=== PATIENT | male | born 1995 | race Hispanic/Latino ===

== ENCOUNTER 2018-03-16 12:14 | Emergency (ER) | payer OTHER, SELFPAY ==
--- NOTE | 2018-03-16 12:36 | EDPHYS ---
Physician Documentation [facility] Name: Quinn Garcia Age: 22 yrs Sex: Male : 1995 Arrival Date: 03/16/2018 Time: 12:15 Bed 12 Private MD: None, None ED Physician Sherwin Ness HPI: 03/16 12:45 This 22 yrs old Male presents to ER via Ambulatory with complaints of Rash. snw 12:45 The patient's rash thought to be caused by Dermatitis. The rash is located on the body snw diffusely. The rash can be described as erythematous, flat, patchy, + central clearing. Onset: The symptoms/episode began/occurred gradually. Severity of symptoms: At their worst the symptoms were moderate severe. It is unknown whether or not the patient has had similar symptoms in the past. The patient has not recently seen a physician. Historical: - Allergies: 12:25 No Known Allergies; ch - Home Meds: 12:25 None [Active]; ch - PMHx: 12:25 None; ch - PSHx: 12:25 None; ch - Immunization history:: Adult Immunizations up to date. - Social history:: Smoking status: Patient/guardian denies using tobacco. - Ebola Screening: : Patient negative for fever greater than or equal to 101.5 degrees Fahrenheit, and additional compatible Ebola Virus Disease symptoms Patient denies exposure to infectious person Patient denies travel to an Ebola-affected area in the 21 days before illness onset No symptoms or risks identified at this time. ROS: 12:44 Constitutional: Negative for fever, chills, and weight loss, Eyes: Negative for injury, snw pain, redness, and discharge, ENT: Negative for injury, pain, and discharge, Neck: Negative for injury, pain, and swelling, Cardiovascular: Negative for chest pain, palpitations, and edema, Respiratory: Negative for shortness of breath, cough, wheezing, and pleuritic chest pain, Abdomen/GI: Negative for abdominal pain, nausea, vomiting, diarrhea, and constipation, Back: Negative for injury and pain, : Negative for injury, bleeding, discharge, and swelling, MS/Extremity: Negative for injury and deformity, Neuro: Negative for headache, weakness, numbness, tingling, and seizure, Psych: Negative for depression, anxiety, suicide ideation, homicidal ideation, and hallucinations. 12:44 Skin: Positive for rash. Exam: 12:43 Constitutional: This is a well developed, well nourished patient who is awake, alert, snw and in no acute distress. Head/Face: Normocephalic, atraumatic. Eyes: Pupils equal round and reactive to light, extra-ocular motions intact. Lids and lashes normal. Conjunctiva and sclera are non-icteric and not injected. Cornea within normal limits. Periorbital areas with no swelling, redness, or edema. ENT: Nares patent. No nasal discharge, no septal abnormalities noted. Tympanic membranes are normal and external auditory canals are clear. Oropharynx with no redness, swelling, or masses, exudates, or evidence of obstruction, uvula midline. Mucous membranes moist. Neck: Trachea midline, no thyromegaly or masses palpated, and no cervical lymphadenopathy. Supple, full range of motion without nuchal rigidity, or vertebral point tenderness. No Meningismus. Chest/axilla: Normal chest wall appearance and motion. Nontender with no deformity. No lesions are appreciated. Cardiovascular: Regular rate and rhythm with a normal S1 and S2. No gallops, murmurs, or rubs. Normal PMI, no JVD. No pulse deficits. Respiratory: Lungs have equal breath sounds bilaterally, clear to auscultation and percussion. No rales, rhonchi or wheezes noted. No increased work of breathing, no retractions or nasal flaring. Abdomen/GI: Soft, non-tender, with normal bowel sounds. No distension or tympany. No guarding or rebound. No evidence of tenderness throughout. Back: No spinal tenderness. No costovertebral tenderness. Full range of motion. MS/ Extremity: Pulses equal, no cyanosis. Neurovascular intact. Full, normal range of motion. Neuro: Awake and alert, GCS 15, oriented to person, place, time, and situation. Cranial nerves II-XII grossly intact. Motor strength 5/5 in all extremities. Sensory grossly intact. Cerebellar exam normal. Normal gait. Psych: Awake, alert, with orientation to person, place and time. Behavior, mood, and affect are within normal limits. 12:43 Skin: Appearance: normal except for affected area, ringworm. Vital Signs: 12:21 BP 127 / 85; Pulse 55; Resp 14; Temp 97.8; Pulse Ox 99% on R/A; Weight 70.76 kg; Height ch 5 ft. 5 in. (165.10 cm); Pain 2/10; 12:21 Body Mass Index 25.96 (70.76 kg, 165.10 cm) MDM: 12:27 Patient medically screened. snw 12:44 Data reviewed: vital signs, nurses notes. Data interpreted: Pulse oximetry: on room air snw is 99 %. Interpretation: normal. Counseling: I had a detailed discussion with the patient and/or guardian regarding: the historical points, exam findings, and any diagnostic results supporting the discharge/admit diagnosis, the presence of at least one elevated blood pressure reading (>120/80) during this emergency department visit, the need for outpatient follow up, to return to the emergency department if symptoms worsen or persist or if there are any questions or concerns that arise at home. Special discussion: Based on the history and exam findings, there is no indication for further emergent testing or inpatient evaluation. I discussed with the patient/guardian the need to see the business support professional for further evaluation of the symptoms. I discussed with the patient/guardian the need to see the primary care provider for further evaluation of the symptoms. Administered Medications: 13:02 Drug: DiFLUcan 150 mg Route: PO; 13:08 Follow up: Response: Medication administered at discharge. Disposition: 03/16/18 12:35 Discharged to Home. Impression: Tinea corporis. - Condition is Stable. - Discharge Instructions: Body Ringworm. - Prescriptions for Tinactin - apply 1 application by TOPICAL route 4 times per day; 1 Cartridge. Fluconazole 150 mg Oral Tablet - take 1 tablet by ORAL route once daily Take orally in one week; 30 tablet. - Medication Reconciliation Form, Thank You Letter, Antibiotic Education, Prescription Opioid Use form. - Follow up: Private Physician; When: 2 - 3 days; Reason: Recheck today's complaints, Continuance of care, Re-evaluation by your physician. Follow up: Emergency Department; When: As needed; Reason: Worsening of condition. - Notes: Please bathe with Selsun Blue shampoo until rash clears Addendum: 03/24/2018 10:58 Co-signature as Attending Physician, Sherwin Ness MD. g s Signatures: Maine Perry RN RN Virginie Arreaga, DEMONSTRATOR SALES-C DEMONSTRATOR SALES-Csnw Norah Jacobs RN RN ss Sherwin Ness MD MD gs Corrections: (The following items were deleted from the chart) 03/16 13:07 12:35 03/16/2018 12:35 Discharged to Home. Impression: Tinea corporis. Condition is ch Stable. Forms are Medication Reconciliation Form, Thank You Letter, Antibiotic Education, Prescription Opioid Use. Follow up: Private Physician; When: 2 - 3 days; Reason: Recheck today's complaints, Continuance of care, Re-evaluation by your physician. Follow up: Emergency Department; When: As needed; Reason: Worsening of condition. snw
--- NOTE | 2018-03-16 12:36 | ER ---
Nurse's Notes [facility] Name: Quinn Garcia Age: 22 yrs Sex: Male : 1995 Arrival Date: 03/16/2018 Time: 12:15 Bed 12 Private MD: None, None Diagnosis: Tinea corporis Presentation: 03/16 12:21 Presenting complaint: Patient states: rash to body for the past two weeks. I have had ch this rash before 2 years ago and they gave me some creme in assisted that got rid of it. Transition of care: patient was not received from another setting of care. Onset of symptoms was March 03, 2018. Risk Assessment: Do you want to hurt yourself or someone else? Patient reports no desire to harm self or others. Initial Sepsis Screen: Does the patient meet any 2 criteria? No. Patient's initial sepsis screen is negative. Does the patient have a suspected source of infection? No. Patient's initial sepsis screen is negative. Care prior to arrival: None. 12:21 Method Of Arrival: Ambulatory 12:21 Acuity: EDEN 5 Triage Assessment: 12:21 General: Appears in no apparent distress. comfortable. ch Historical: - Allergies: 12:25 No Known Allergies; ch - Home Meds: 12:25 None [Active]; ch - PMHx: 12:25 None; ch - PSHx: 12:25 None; ch - Immunization history:: Adult Immunizations up to date. - Social history:: Smoking status: Patient/guardian denies using tobacco. - Ebola Screening: : Patient negative for fever greater than or equal to 101.5 degrees Fahrenheit, and additional compatible Ebola Virus Disease symptoms Patient denies exposure to infectious person Patient denies travel to an Ebola-affected area in the 21 days before illness onset No symptoms or risks identified at this time. Screenin:26 Abuse screen: Denies threats or abuse. Denies injuries from another. Nutritional ch screening: No deficits noted. Tuberculosis screening: No symptoms or risk factors identified. Fall Risk None identified. Assessment: 12:26 General: Appears in no apparent distress. comfortable, Behavior is cooperative, ch appropriate for age, restless. Pain: Denies pain. Neuro: No deficits noted. Respiratory: Airway is patent Respiratory effort is even, unlabored, Breath sounds are clear bilaterally. GI: No signs and/or symptoms were reported involving the gastrointestinal system. Derm: Skin is pink, warm \T\ dry. Rash noted that is itchy, red, on head, chest, abdomen, pelvis, right arm, left arm, right leg, left leg, back of head, back of neck, posterior chest, buttocks, back of left leg, back of right leg, back and scalp pt has scabs over a rash, skin is slightly darker where the rash is, in some areas red. rash is largest on back, slightly raised. no warmth. 13:07 Reassessment: Patient appears in no apparent distress at this time. No changes from previously documented assessment. Patient and/or family updated on plan of care and expected duration. Pain level reassessed. Patient is alert, oriented x 3, equal unlabored respirations, skin warm/dry/pink. Vital Signs: 12:21 BP 127 / 85; Pulse 55; Resp 14; Temp 97.8; Pulse Ox 99% on R/A; Weight 70.76 kg; Height 5 ft. 5 in. (165.10 cm); Pain 2/10; 12:21 Body Mass Index 25.96 (70.76 kg, 165.10 cm) ED Course: 12:15 Patient arrived in ED. sb2 12:15 None, None is Private Physician. sb2 12:21 Maine Perry, RN is Primary Nurse. ch 12:21 Arm band placed on left wrist. Patient placed in an exam room, on a stretcher. 12:22 Triage completed. 12:26 Virginie Mirza FNP-C is [facility]. snw 12:26 No apparent distress. Resting quietly. ch 12:26 Patient has correct armband on for positive identification. Bed in low position. Call light in reach. Side rails up X 1. Adult w/ patient. 12:26 No provider procedures requiring assistance completed. Patient did not have IV access during this emergency room visit. 12:27 Sherwin Ness MD is Attending Physician. snw Administered Medications: 13:02 Drug: DiFLUcan 150 mg Route: PO; ss 13:08 Follow up: Response: Medication administered at discharge. Outcome: 12:35 Discharge ordered by . snw 13:07 Discharged to home ambulatory, with family. 13:07 Condition: good 13:07 Discharge instructions given to patient, family, Instructed on discharge instructions, follow up and referral plans. medication usage, Demonstrated understanding of instructions, follow-up care, medications, Prescriptions given X 1. 13:07 Patient left the ED. Signatures: Maine Perry, RN RN Virginie Mirza, ENGINEERING DESIGN SUPERVISOR-C ENGINEERING DESIGN SUPERVISOR-Csnw Norah Jacobs RN RN Lali Rowan sb2
[2018-03-16] MEDS ORDERED: FLUCONAZOLE 100 MG TAB ONE (12:55)
== END 2018-03-16 13:07 | disposition home or self-care (01) ==
LOC: ER 12:14
DX: B35.4 Tinea corporis (principal)
CPT/HCPCS: 99283

== ENCOUNTER 2019-02-13 11:50 | Emergency (ER) | payer SELFPAY ==
--- NOTE | 2019-02-13 12:07 | EDPHYS ---
Physician Documentation [facility] Name: Quinn Garcia Age: 23 yrs Sex: Male : 1995 Arrival Date: 02/13/2019 Time: 11:52 Bed 19 Private MD: TALHA Physician Jonny Vicente HPI: 02/13 12:00 This 23 yrs old Male presents to ER via Unassigned with complaints of Penile kb Discharge. 12:00 The patient presents with a possible STD exposure, symptoms include green penile kb discharge, yellow penile discharge. Onset: The symptoms/episode began/occurred 2 day(s) ago. Modifying factors: The symptoms are alleviated by nothing, the symptoms are aggravated by nothing. Associated signs and symptoms: Pertinent positives: penile discharge. Severity of symptoms: At their worst the symptoms were moderate, in the emergency department the symptoms are unchanged. The patient has not experienced similar symptoms in the past. The patient has not recently seen a physician. Pt reports he recently had unprotected sex with three different people. Started having green penile discharge 2 days ago, now yellow. Historical: - Allergies: 12:02 No Known Allergies; aj - Home Meds: 12:02 None [Active]; aj - PMHx: 12:02 None; aj - PSHx: 12:02 None; aj - Immunization history:: Adult Immunizations up to date. - Social history:: Smoking status: Patient/guardian denies using tobacco. - Ebola Screening: : Patient negative for fever greater than or equal to 101.5 degrees Fahrenheit, and additional compatible Ebola Virus Disease symptoms Patient denies exposure to infectious person Patient denies travel to an Ebola-affected area in the 21 days before illness onset No symptoms or risks identified at this time. ROS: 12:04 Constitutional: Negative for fever, chills, and weight loss, Neck: Negative for injury, kb pain, and swelling, Cardiovascular: Negative for chest pain, palpitations, and edema, Respiratory: Negative for shortness of breath, cough, wheezing, and pleuritic chest pain, Abdomen/GI: Negative for abdominal pain, nausea, vomiting, diarrhea, and constipation, MS/Extremity: Negative for injury and deformity, Skin: Negative for injury, rash, and discoloration, Neuro: Negative for headache, weakness, numbness, tingling, and seizure. 12:04 : Positive for penile discharge. Exam: 12:05 Constitutional: This is a well developed, well nourished patient who is awake, alert, kb and in no acute distress. Head/Face: Normocephalic, atraumatic. Chest/axilla: Normal chest wall appearance and motion. Nontender with no deformity. No lesions are appreciated. Cardiovascular: Regular rate and rhythm with a normal S1 and S2. No gallops, murmurs, or rubs. Normal PMI, no JVD. No pulse deficits. Respiratory: Lungs have equal breath sounds bilaterally, clear to auscultation and percussion. No rales, rhonchi or wheezes noted. No increased work of breathing, no retractions or nasal flaring. Abdomen/GI: Soft, non-tender, with normal bowel sounds. No distension or tympany. No guarding or rebound. No evidence of tenderness throughout. Skin: Warm, dry with normal turgor. Normal color with no rashes, no lesions, and no evidence of cellulitis. MS/ Extremity: Pulses equal, no cyanosis. Neurovascular intact. Full, normal range of motion. Neuro: Awake and alert, GCS 15, oriented to person, place, time, and situation. Cranial nerves II-XII grossly intact. Motor strength 5/5 in all extremities. Sensory grossly intact. Cerebellar exam normal. Normal gait. Vital Signs: 12:02 BP 141 / 91; Pulse 88; Resp 19; Temp 98.2; Pulse Ox 100% on R/A; Weight 63.5 kg; Height aj 5 ft. 5 in. (165.10 cm); 12:02 Body Mass Index 23.30 (63.50 kg, 165.10 cm) MDM: 11:59 Patient medically screened. kb 12:05 Data reviewed: vital signs, nurses notes. Data interpreted: Pulse oximetry: on room air kb is 100 %. Interpretation: normal. Counseling: I had a detailed discussion with the patient and/or guardian regarding: the historical points, exam findings, and any diagnostic results supporting the discharge/admit diagnosis, the need for outpatient follow up, a family practitioner, to return to the emergency department if symptoms worsen or persist or if there are any questions or concerns that arise at home. 02/13 11:59 Order name: GC (GONORR/CHLAMYDIA) Probe mary Administered Medications: 12:19 Drug: Zithromax 500 mg Route: PO; bp 12:22 Follow up: Response: No adverse reaction bp 12:19 Drug: Rocephin (cefTRIAXone) 250 mg Route: IM; Site: right gluteus; bp 12:22 Follow up: Response: No adverse reaction bp Disposition: 02/14 08:13 Co-signature as Attending Physician, Jonny Vicente MD I agree with the assessment and corinne plan of care. Disposition: 02/13/19 12:06 Discharged to Home. Impression: Unspecified sexually transmitted disease. - Condition is Stable. - Discharge Instructions: Sexually Transmitted Disease, [id number]. - Prescriptions for Doxycycline Hyclate 100 mg Oral Tablet - take 1 tablet by ORAL route every 12 hours; 20 tablet. - Medication Reconciliation Form, Thank You Letter, Antibiotic Education, Prescription Opioid Use form. - Follow up: Emergency Department; When: As needed; Reason: Worsening of condition. Follow up: Private Physician; When: 2 - 3 days; Reason: Recheck today's complaints, Continuance of care, Re-evaluation by your physician. Signatures: Dispatcher [employer] Katharine Barnard, PUFF IRON OPERATOR-C PUFF IRON OPERATOR-CkNancy Mauro, RN RN Jonny Ash MD MD cha Peltier, Brian, RN RN bp Corrections: (The following items were deleted from the chart) 02/13 12:34 12:06 02/13/2019 12:06 Discharged to Home. Impression: Unspecified sexually transmitted bp disease. Condition is Stable. Forms are Medication Reconciliation Form, Thank You Letter, Antibiotic Education, Prescription Opioid Use. Follow up: Emergency Department; When: As needed; Reason: Worsening of condition. Follow up: Private Physician; When: 2 - 3 days; Reason: Recheck today's complaints, Continuance of care, Re-evaluation by your physician. kb
--- NOTE | 2019-02-13 12:07 | ER ---
Nurse's Notes [facility] Name: Quinn Garcia Age: 23 yrs Sex: Male : 1995 Arrival Date: 02/13/2019 Time: 11:52 Bed 19 Private MD: Diagnosis: Unspecified sexually transmitted disease Presentation: 02/13 12:00 Presenting complaint: Patient states: Green and yellow discharge for 3 days after aj unprotected sex. Transition of care: patient was not received from another setting of care. Onset of symptoms was January 11, 2019. Risk Assessment: Do you want to hurt yourself or someone else? Patient reports no desire to harm self or others. Initial Sepsis Screen: Does the patient meet any 2 criteria? No. Patient's initial sepsis screen is negative. Does the patient have a suspected source of infection? No. Patient's initial sepsis screen is negative. Care prior to arrival: None. 12:00 Method Of Arrival: Ambulatory aj 12:00 Acuity: EDEN 4 aj Triage Assessment: 12:02 General: Appears in no apparent distress. comfortable, Behavior is calm, cooperative, aj appropriate for age. Pain: Denies pain. Neuro: Level of Consciousness is awake, alert, obeys commands, Oriented to person, place, time, situation, Appropriate for age. Respiratory: Airway is patent Respiratory effort is even, unlabored, Respiratory pattern is regular, symmetrical. : Reports discharge. Derm: Skin is intact, is healthy with good turgor, Skin is pink, warm \T\ dry. normal. Historical: - Allergies: 12:02 No Known Allergies; aj - Home Meds: 12:02 None [Active]; aj - PMHx: 12:02 None; aj - PSHx: 12:02 None; aj - Immunization history:: Adult Immunizations up to date. - Social history:: Smoking status: Patient/guardian denies using tobacco. - Ebola Screening: : Patient negative for fever greater than or equal to 101.5 degrees Fahrenheit, and additional compatible Ebola Virus Disease symptoms Patient denies exposure to infectious person Patient denies travel to an Ebola-affected area in the 21 days before illness onset No symptoms or risks identified at this time. Screenin:24 Abuse screen: Denies threats or abuse. Denies injuries from another. Nutritional bp screening: No deficits noted. Tuberculosis screening: No symptoms or risk factors identified. Fall Risk None identified. Assessment: 12:05 General: Appears in no apparent distress. comfortable, slender, Behavior is bp cooperative, appropriate for age, anxious. Pain: Complains of pain in groin. Neuro: Level of Consciousness is awake, alert, obeys commands, Oriented to person, place, time, situation, Appropriate for age. Cardiovascular: No deficits noted. Respiratory: Airway is patent Respiratory effort is even, unlabored, Respiratory pattern is regular, symmetrical. GI: No signs and/or symptoms were reported involving the gastrointestinal system. : No signs and/or symptoms were reported regarding the genitourinary system. EENT: No deficits noted. Derm: No deficits noted. Musculoskeletal: Circulation, motion, and sensation intact. Range of motion: intact in all extremities. 12:23 Reassessment: PT D/C HOME AMBULATORY, DX WITH STD. bp Vital Signs: 12:02 BP 141 / 91; Pulse 88; Resp 19; Temp 98.2; Pulse Ox 100% on R/A; Weight 63.5 kg; Height aj 5 ft. 5 in. (165.10 cm); 12:02 Body Mass Index 23.30 (63.50 kg, 165.10 cm) aj ED Course: 11:52 Patient arrived in ED. as 11:59 Katharine aDiley FNP-C is [facility]. kb 11:59 Jonny Vicente MD is Attending Physician. kb 12:01 Triage completed. aj 12:02 Phil Zamora, RN is Primary Nurse. bp 12:02 Arm band placed on right wrist. Patient placed in an exam room. aj 12:24 Patient has correct armband on for positive identification. Bed in low position. Call bp light in reach. Side rails up X2. 12:24 No provider procedures requiring assistance completed. Patient did not have IV access bp during this emergency room visit. Administered Medications: 12:19 Drug: Zithromax 500 mg Route: PO; bp 12:22 Follow up: Response: No adverse reaction bp 12:19 Drug: Rocephin (cefTRIAXone) 250 mg Route: IM; Site: right gluteus; bp 12:22 Follow up: Response: No adverse reaction bp Outcome: 12:06 Discharge ordered by . kb 12:25 Discharged to home ambulatory. bp 12:25 Condition: stable 12:25 Discharge instructions given to patient, Instructed on discharge instructions, follow up and referral plans. medication usage, Demonstrated understanding of instructions, follow-up care, medications, Prescriptions given X 1. 12:34 Patient left the ED. bp Signatures: Katharine Dailey, CLEAN UP PERSON-C CLEAN UP PERSON-Nancy Gonzales, RN RN Rubina Palomino Brian, RN RN bp
[2019-02-13] MEDS ORDERED: WATER FOR INJ,STERILE 10 ML ONE (12:25)
[2019-02-13] MEDS ORDERED: AZITHROMYCIN 250 MG TAB ONE (12:25)
[2019-02-13] MEDS ORDERED: CEFTRIAXONE 250 MG/VIAL ONE (12:25)
[2019-02-16 04:41] LABS: C.trachomatis RNA,TMA Detected (Not Detected)
== END 2019-02-13 12:34 | disposition home or self-care (01) ==
LOC: ER 11:50
DX: A64 Unspecified sexually transmitted disease (principal)
CPT/HCPCS: 87490; 87590; 96372; 99283; J0696

== ENCOUNTER 2020-06-04 09:03 | Emergency (ER) | payer SELFPAY ==
--- NOTE | 2020-06-04 09:18 | EDPHYS ---
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 Onset: The symptoms/episode began/occurred at an unknown time. Modifying factors: The symptoms are alleviated by nothing, the symptoms are aggravated by nothing. Severity of symptoms: At their worst the symptoms were mild, in the emergency department the symptoms are unchanged. The patient has not experienced similar symptoms in the past. Reports sex with partner who tested positive for chlamydia. Reports now having yellow penile discharge. No abd pain. No fever. No penile pain or lesions.. Historical: - Allergies: 09:50 No Known Allergies; jr10 - Home Meds: 09:50 None [Active]; jr10 - PMHx: 09:50 None; jr10 - PSHx: 09:50 None; jr10 - Immunization history:: Adult Immunizations up to date. - Family history:: not pertinent. - Social history:: Smoking status: Patient denies any tobacco usage or history of. Patient uses alcohol, occasionally. street drugs, marijuana. - Hospitalizations: : No recent hospitalization is reported. ROS: 09:15 Constitutional: Negative for fever, chills, and weight loss, Eyes: Negative for injury, rn pain, redness, and discharge, Cardiovascular: Negative for chest pain, palpitations, and edema, Respiratory: Negative for shortness of breath, cough, wheezing, and pleuritic chest pain, Abdomen/GI: Negative for abdominal pain, nausea, vomiting, diarrhea, and constipation, : + penile discharge MS/Extremity: Negative for injury and deformity, Skin: Negative for injury, rash, and discoloration, Neuro: Negative for headache, weakness, numbness, tingling, and seizure. Exam: 09:15 Constitutional: This is a well developed, well nourished patient who is awake, alert, rn and in no acute distress. Abdomen/GI: soft, non-tender Male : Normal genitalia with clear/yellow discharge, no ulceration or lesions. No scrotal swelling or tenderness Vital Signs: 09:18 BP 128 / 92; Pulse 92; Resp 18; Temp 98.3; Pulse Ox 98% on R/A; Weight 73.48 kg; Height jr10 5 ft. 5 in. (165.10 cm); Pain 0/10; 09:18 Body Mass Index 26.96 (73.48 kg, 165.10 cm) jr10 MDM: 09:08 Patient medically screened. rn 09:15 Differential diagnosis: urethritis, STI. Data reviewed: vital signs, nurses notes, and rn as a result, I will discharge patient. Counseling: I had a detailed discussion with the patient and/or guardian regarding: the historical points, exam findings, and any diagnostic results supporting the discharge/admit diagnosis, the need for outpatient follow up, to return to the emergency department if symptoms worsen or persist or if there are any questions or concerns that arise at home. Special discussion: I discussed with the patient/guardian in detail that at this point there is no indication for admission to the hospital. It is understood, however, that if the symptoms persist or worsen the patient needs to return immediately for re-evaluation. Administered Medications: 09:33 Drug: Flagyl 2 grams Route: PO; jr10 09:48 Follow up: Response: No adverse reaction jr10 09:33 Drug: Rocephin (cefTRIAXone) 250 mg Route: IM; Site: right gluteus; jr10 09:48 Follow up: Response: No adverse reaction 10 Disposition: 06/04/20 09:17 Discharged to Home. Impression: Sexually transmitted chlamydial infection of other sites. - Condition is Stable. - Discharge Instructions: Sexually Transmitted Disease. - Prescriptions for Doxycycline Monohydrate 100 mg Oral Tablet - take 1 tablet by ORAL route every 12 hours for 10 days; 20 tablet. - Medication Reconciliation Form, Thank You Letter, Antibiotic Education, Prescription Opioid Use form. - Follow up: Private Physician; When: As needed; Reason: Recheck today's complaints, Re-evaluation by your physician. - Problem is new. - Symptoms are unchanged. Signatures: Triston Santana MD MD rn Rivera, Jessica, RN RN jr10 Corrections: (The following items were deleted from the chart) 09:51 09:17 06/04/2020 09:17 Discharged to Home. Impression: Sexually transmitted chlamydial jr10 infection of other sites. Condition is Stable. Forms are Medication Reconciliation Form, Thank You Letter, Antibiotic Education, Prescription Opioid Use. Follow up: Private Physician; When: As needed; Reason: Recheck today's complaints, Re-evaluation by your physician. Problem is new. Symptoms are unchanged. rn
[2020-06-04] MEDS ORDERED: metroNIDAZOLE 500 MG TABLET ONE (09:34)
[2020-06-04] MEDS ORDERED: WATER FOR INJ,STERILE 10 ML ONE (09:34)
[2020-06-04] MEDS ORDERED: CEFTRIAXONE 250 MG/VIAL ONE (09:34)
--- NOTE | 2020-06-04 09:51 | ER ---
Nurse's Notes [facility] Name: Quinn Garcia Age: 24 yrs Sex: Male : 1995 Arrival Date: 06/04/2020 Time: 09:05 Bed 17 Private MD: Diagnosis: Sexually transmitted chlamydial infection of other sites Presentation: 06/04 09:18 Chief complaint: Patient states: pt c/o yellow penile d/c x4 days; denies penile or jr10 testicular pain, denies urinary complaints. Coronavirus screen: Client denies travel out of the [place] in the last 14 days. At this time, the client does not indicate any symptoms associated with coronavirus-19. Ebola Screen: No symptoms or risks identified at this time. Initial Sepsis Screen: Does the patient meet any 2 criteria? No. Patient's initial sepsis screen is negative. Does the patient have a suspected source of infection? No. Patient's initial sepsis screen is negative. Risk Assessment: Do you want to hurt yourself or someone else? Patient reports no desire to harm self or others. Onset of symptoms was May 31, 2020. 09:18 Method Of Arrival: Ambulatory jr10 09:18 Acuity: EDEN 4 jr10 Historical: - Allergies: 09:50 No Known Allergies; jr10 - Home Meds: 09:50 None [Active]; jr10 - PMHx: 09:50 None; jr10 - PSHx: 09:50 None; jr10 - Immunization history:: Adult Immunizations up to date. - Family history:: not pertinent. - Social history:: Smoking status: Patient denies any tobacco usage or history of. Patient uses alcohol, occasionally. street drugs, marijuana. - Hospitalizations: : No recent hospitalization is reported. Screenin:20 Abuse screen: Denies threats or abuse. Denies injuries from another. Nutritional jr10 screening: No deficits noted. Tuberculosis screening: No symptoms or risk factors identified. Fall Risk None identified. Assessment: 09:20 General: Appears in no apparent distress. Behavior is appropriate for age. Pain: Denies jr10 pain. : Reports discharge, from penis that is yellow, since 4 days ago Denies burning with urination, inability to void, urinary frequency, urgency, Patient is sexually active. Vital Signs: 09:18 BP 128 / 92; Pulse 92; Resp 18; Temp 98.3; Pulse Ox 98% on R/A; Weight 73.48 kg; Height jr10 5 ft. 5 in. (165.10 cm); Pain 0/10; 09:18 Body Mass Index 26.96 (73.48 kg, 165.10 cm) jr10 ED Course: 09:05 Patient arrived in ED. ag5 09:08 Triston Santana MD is Attending Physician. rn 09:14 Codie Oconnor, IKER is Primary Nurse. jr10 09:20 Triage completed. jr10 09:20 Arm band placed on. jr10 09:21 Patient has correct armband on for positive identification. Bed in low position. Call jr10 light in reach. Side rails up X 1. Cardiac monitoring not applicable on this patient. 09:21 No provider procedures requiring assistance completed. Patient did not have IV access jr10 during this emergency room visit. Administered Medications: 09:33 Drug: Flagyl 2 grams Route: PO; jr10 09:48 Follow up: Response: No adverse reaction jr10 09:33 Drug: Rocephin (cefTRIAXone) 250 mg Route: IM; Site: right gluteus; jr10 09:48 Follow up: Response: No adverse reaction jr10 Outcome: 09:17 Discharge ordered by . rn 09:49 Discharged to home ambulatory. jr10 09:49 Condition: good 09:49 Discharge instructions given to patient, Instructed on discharge instructions, follow up and referral plans. Demonstrated understanding of instructions, follow-up care, medications, Prescriptions given X 1, resources given for community STD testing, pt instructed to not have sex until abx completed and testing is obtained; pt verbalized understanding of all instructions 09:51 Patient left the ED. jr10 Signatures: Triston Santana MD MD rn Gaskin, Ajare ag5 Codie Oconnor, IKER DONG jr10
[2020-06-09 09:39] VITALS: BP 128/92; TEMP 98.3; O2SAT 98
== END 2020-06-04 09:51 | disposition home or self-care (01) ==
LOC: ER 09:03
DX: A56.8 Sexually transmitted chlamydial infection of other sites (principal)
CPT/HCPCS: 96372; 99283; J0696

== ENCOUNTER 2020-08-05 18:34 | Emergency (ER) | payer SELFPAY ==
--- NOTE | 2020-08-05 20:06 | ER ---
Nurse's Notes [facility] Name: Quinn Garcia Age: 24 yrs Sex: Male : 1995 Arrival Date: 08/05/2020 Time: 18:35 Bed 13 Private MD: Diagnosis: Urethritis and urethral syndrome Presentation: 08/05 18:59 Chief complaint: Patient states: My partner got tested for STD today and she said she ca1 has gonorrhea. 2-3 days ago, noticed yellow-greenish penile discharge. Denies burning with urination. Denies fever. Coronavirus screen: Client denies travel out of the [place] in the last 14 days. At this time, the client does not indicate any symptoms associated with coronavirus-19. Ebola Screen: Patient negative for fever greater than or equal to 101.5 degrees Fahrenheit, and additional compatible Ebola Virus Disease symptoms Patient denies exposure to infectious person. Patient denies travel to an Ebola-affected area in the 21 days before illness onset. No symptoms or risks identified at this time. Initial Sepsis Screen: Does the patient meet any 2 criteria? No. Patient's initial sepsis screen is negative. Does the patient have a suspected source of infection? No. Patient's initial sepsis screen is negative. Risk Assessment: Do you want to hurt yourself or someone else? Patient reports no desire to harm self or others. Onset of symptoms was August 05, 2020. 18:59 Method Of Arrival: Ambulatory ca1 18:59 Acuity: EDEN 4 ca1 Triage Assessment: 19:50 General: Appears in no apparent distress. comfortable, Behavior is calm, cooperative, rr5 appropriate for age. Historical: - Allergies: 19:03 No Known Allergies; ca1 - Home Meds: 19:03 None [Active]; ca1 - PMHx: 19:03 None; ca1 - PSHx: 19:03 None; ca1 - Immunization history:: Adult Immunizations up to date, Flu vaccine is not up to date. It has been more than one year since last vaccine. - Social history:: Smoking status: Patient denies any tobacco usage or history of. Screenin:24 Abuse screen: Denies threats or abuse. Denies injuries from another. Nutritional rr5 screening: No deficits noted. Tuberculosis screening: No symptoms or risk factors identified. Fall Risk None identified. Assessment: 19:50 General: Appears in no apparent distress. comfortable, Behavior is calm, cooperative, rr5 appropriate for age. 19:50 Pain: Complains of pain in pelvis. Neuro: Level of Consciousness is awake, alert, obeys rr5 commands, Oriented to person, place, time, situation. Cardiovascular: Capillary refill < 3 seconds Patient's skin is warm and dry. Respiratory: Airway is patent Respiratory effort is even, unlabored, Respiratory pattern is regular, symmetrical. GI: No signs and/or symptoms were reported involving the gastrointestinal system. : Reports yellowish discharge. EENT: No signs and/or symptoms were reported regarding the EENT system. Derm: Skin is intact, is healthy with good turgor, Skin temperature is warm. Musculoskeletal: Circulation, motion, and sensation intact. Capillary refill < 3 seconds. 20:25 Reassessment: Patient appears in no apparent distress at this time. Patient is alert, rr5 oriented x 3, equal unlabored respirations, skin warm/dry/pink. discharge instruction given and explained without complaints made. Vital Signs: 18:59 BP 120 / 64; Pulse 61; Resp 18 S; Temp 98.2(TE); Pulse Ox 99% on R/A; Weight 68.04 kg ca1 (R); Height 5 ft. 5 in. (165.10 cm) (R); Pain 0/10; 20:15 BP 126 / 85; Pulse 60; Resp 19; Pulse Ox 99% ; rr5 18:59 Body Mass Index 24.96 (68.04 kg, 165.10 cm) ca1 ED Course: 18:35 Patient arrived in ED. ds1 19:03 Triage completed. ca1 19:03 Arm band placed on right wrist. ca1 19:43 Hong Mullins NP is PHCP. pm1 19:43 Romain March MD is Attending Physician. pm1 19:47 Osmany aKn RN is Primary Nurse. rr5 20:00 Patient has correct armband on for positive identification. Bed in low position. rr5 20:25 No provider procedures requiring assistance completed. Patient did not have IV access rr5 during this emergency room visit. Administered Medications: 20:10 Drug: Rocephin (cefTRIAXone) 250 mg Route: IM; Site: right gluteus; rr5 20:25 Follow up: Response: No adverse reaction rr5 20:16 Drug: AZITHromycin 1 grams Route: PO; rr5 20:25 Follow up: Response: No adverse reaction rr5 Outcome: 20:05 Discharge ordered by MD. pm1 20:24 Discharged to home ambulatory. rr5 20:24 Condition: stable 20:24 Discharge instructions given to patient, Instructed on discharge instructions, follow up and referral plans. Demonstrated understanding of instructions, follow-up care. 20:25 Patient left the ED. rr5 Signatures: Liliya Casas ds1 Hong Mullins NP INSECT CONTROL AIDE pm1 Osmany Kan, RN RN rr5 Cecille Hernández RN RN ca1
--- NOTE | 2020-08-05 20:06 | EDPHYS ---
Physician Documentation [facility] Name: Quinn Garcia Age: 24 yrs Sex: Male : 1995 Arrival Date: 08/05/2020 Time: 18:35 Bed 13 Private MD: ED Physician Romain March HPI: 08/05 20:04 This 24 yrs old Male presents to ER via Ambulatory with complaints of Penile pm1 Discharge. 20:04 The patient presents with urinary symptoms, penile discharge. Onset: The pm1 symptoms/episode began/occurred 3 day(s) ago. Modifying factors: The symptoms are alleviated by nothing, the symptoms are aggravated by nothing. Associated signs and symptoms: Pertinent negatives: abdominal pain, dysuria, fever. Severity of symptoms: in the emergency department the symptoms are unchanged. The patient has experienced a previous episode, many years ago. Patient's girlfriend tested positive for gonorrhea today. Historical: - Allergies: 19:03 No Known Allergies; ca1 - Home Meds: 19:03 None [Active]; ca1 - PMHx: 19:03 None; ca1 - PSHx: 19:03 None; ca1 - Immunization history:: Adult Immunizations up to date, Flu vaccine is not up to date. It has been more than one year since last vaccine. - Social history:: Smoking status: Patient denies any tobacco usage or history of. ROS: 20:04 Constitutional: Negative for fever, chills, and weight loss, Cardiovascular: Negative pm1 for chest pain, palpitations, and edema, Respiratory: Negative for shortness of breath, cough, wheezing, and pleuritic chest pain, Abdomen/GI: Negative for abdominal pain, nausea, vomiting, diarrhea, and constipation, Back: Negative for injury and pain. 20:04 MS/Extremity: Negative for injury and deformity, Skin: Negative for injury, rash, and discoloration, Neuro: Negative for headache, weakness, numbness, tingling, and seizure. 20:04 : Positive for penile discharge, Negative for burning with urination, difficulty urinating, testicular pain Exam: 20:04 Constitutional: This is a well developed, well nourished patient who is awake, alert, pm1 and in no acute distress. Head/Face: Normocephalic, atraumatic. 20:04 Skin: Warm, dry with normal turgor. Normal color with no rashes, no lesions, and no evidence of cellulitis. 20:04 MS/ Extremity: Pulses equal, no cyanosis. Neurovascular intact. Full, normal range of motion. 20:04 Cardiovascular: Exam negative for acute changes, Rate: normal. 20:04 Respiratory: Exam negative for acute changes, respiratory distress, shortness of breath. 20:04 : Male external genitalia: normal, Patient is not circumisioned. 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 20:04 Neuro: Exam negative for acute changes, Orientation: is normal, Mentation: is normal, Motor: is normal, moves all fours. Vital Signs: 18:59 BP 120 / 64; Pulse 61; Resp 18 S; Temp 98.2(TE); Pulse Ox 99% on R/A; Weight 68.04 kg ca1 (R); Height 5 ft. 5 in. (165.10 cm) (R); Pain 0/10; 20:15 BP 126 / 85; Pulse 60; Resp 19; Pulse Ox 99% ; rr5 18:59 Body Mass Index 24.96 (68.04 kg, 165.10 cm) ca1 MDM: 19:43 Patient medically screened. pm1 20:04 Data reviewed: vital signs. Data interpreted: Pulse oximetry: on room air is 99 %. pm1 Interpretation: normal. Counseling: I had a detailed discussion with the patient and/or guardian regarding: the historical points, exam findings, and any diagnostic results supporting the discharge/admit diagnosis, the need for outpatient follow up, std clinic, to return to the emergency department if symptoms worsen or persist or if there are any questions or concerns that arise at home. 08/05 19:41 Order name: Urine Dipstick-Ancillary (obtain specimen); Complete Time: 19:41 ca1 Administered Medications: 20:10 Drug: Rocephin (cefTRIAXone) 250 mg Route: IM; Site: right gluteus; rr5 20:25 Follow up: Response: No adverse reaction rr5 20:16 Drug: AZITHromycin 1 grams Route: PO; rr5 20:25 Follow up: Response: No adverse reaction rr5 Disposition: 08/06 01:17 Co-signature as Attending Physician, Romain March MD. pkl Disposition: 08/05/20 20:05 Discharged to Home. Impression: Urethritis and urethral syndrome. - Condition is Stable. - Discharge Instructions: Urethritis, Adult. - Medication Reconciliation Form, Thank You Letter, Antibiotic Education, Prescription Opioid Use form. - Follow up: Emergency Department; When: As needed; Reason: Worsening of condition. Follow up: Private Physician; When: 2 - 3 days; Reason: Recheck today's complaints, Continuance of care, Re-evaluation by your physician. - Problem is new. - Symptoms have improved. Signatures: Romain March MD MD pkl Hong Mullins NP SENIOR GEOTECHNICAL ENGINEER pm1 Osmany Kan, RN RN rr5 Cecille Hernández RN RN ca1 Corrections: (The following items were deleted from the chart) 08/05 20:25 20:05 08/05/2020 20:05 Discharged to Home. Impression: Urethritis and urethral rr5 syndrome. Condition is Stable. Forms are Medication Reconciliation Form, Thank You Letter, Antibiotic Education, Prescription Opioid Use. Follow up: Emergency Department; When: As needed; Reason: Worsening of condition. Follow up: Private Physician; When: 2 - 3 days; Reason: Recheck today's complaints, Continuance of care, Re-evaluation by your physician. Problem is new. Symptoms have improved. pm1
[2020-08-05] MEDS ORDERED: AZITHROMYCIN 250 MG TAB ONE (20:19)
[2020-08-05] MEDS ORDERED: CEFTRIAXONE 250 MG/VIAL ONE (20:19)
[2020-08-05] MEDS ORDERED: WATER FOR INJ,STERILE 10 ML ONE (20:19)
[2020-08-05 20:52] VITALS: BP 120/64; TEMP 98.2; O2SAT 99
== END 2020-08-05 20:25 | disposition home or self-care (01) ==
LOC: ER 18:34
DX: N34.2 Other urethritis (principal); N34.3 Urethral syndrome, unspecified
CPT/HCPCS: 96372; 99283; J0696

== ENCOUNTER 2020-08-13 17:58 | Emergency (ER) | payer SELFPAY ==
--- NOTE | 2020-08-13 18:21 | EDPHYS ---
Physician Documentation [facility] Name: Quinn Garcia Age: 24 yrs Sex: Male : 1995 Arrival Date: 08/13/2020 Time: 18:00 Bed 18 Private MD: ED Physician Triston Santana HPI: 08/13 18:35 This 24 yrs old Male presents to ER via Ambulatory with complaints of Possible kb STD. 18:35 The patient presents with a known STD exposure, with a history of engaging in sex with kb multiple partners, did not use protection, symptoms include green penile discharge, yellow penile discharge. Onset: The symptoms/episode began/occurred 2 week(s) ago. Modifying factors: The symptoms are alleviated by nothing, the symptoms are aggravated by nothing. Associated signs and symptoms: The patient has no apparent associated signs or symptoms. Severity of symptoms: At their worst the symptoms were moderate, in the emergency department the symptoms are unchanged. The patient has experienced similar episodes in the past, a few times. The patient has not recently seen a physician. Historical: - Allergies: 18:07 No Known Allergies; jd3 - Home Meds: 18:07 None [Active]; jd3 - PMHx: 18:07 None; jd3 - PSHx: 18:07 None; jd3 - Immunization history:: Adult Immunizations unknown. - Social history:: Smoking status: Patient denies any tobacco usage or history of. ROS: 18:34 : Positive for penile discharge. kb 18:34 Constitutional: Negative for fever, chills, and weight loss, Respiratory: Negative for kb shortness of breath, cough, wheezing, and pleuritic chest pain, Abdomen/GI: Negative for abdominal pain, nausea, vomiting, diarrhea, and constipation, Back: Negative for injury and pain, Neuro: Negative for headache, weakness, numbness, tingling, and seizure. Exam: 18:34 Constitutional: This is a well developed, well nourished patient who is awake, alert, kb and in no acute distress. Head/Face: Normocephalic, atraumatic. Abdomen/GI: Soft, non-tender, with normal bowel sounds. No distension or tympany. No guarding or rebound. No evidence of tenderness throughout. Skin: Warm, dry with normal turgor. Normal color with no rashes, no lesions, and no evidence of cellulitis. MS/ Extremity: Pulses equal, no cyanosis. Neurovascular intact. Full, normal range of motion. Neuro: Awake and alert, GCS 15, oriented to person, place, time, and situation. Cranial nerves II-XII grossly intact. Motor strength 5/5 in all extremities. Sensory grossly intact. Cerebellar exam normal. Normal gait. 18:34 Respiratory: the patient does not display signs of respiratory distress, Respirations: normal. Vital Signs: 18:07 BP 142 / 79; Pulse 79; Resp 17 S; Temp 98.7(TE); Pulse Ox 100% on R/A; Weight 74.84 kg jd3 (R); Height 5 ft. 5 in. (165.10 cm) (R); Pain 5/10; 18:56 BP 137 / 81; Pulse 81; Resp 17; Temp 98.5; Pulse Ox 100% ; bp 18:07 Body Mass Index 27.46 (74.84 kg, 165.10 cm) jd3 MDM: 18:10 Patient medically screened. kb 18:33 Data reviewed: vital signs, nurses notes. Data interpreted: Pulse oximetry: on room air kb is 100 %. Interpretation: normal. Counseling: I had a detailed discussion with the patient and/or guardian regarding: the historical points, exam findings, and any diagnostic results supporting the discharge/admit diagnosis, the need for outpatient follow up, a family practitioner, to return to the emergency department if symptoms worsen or persist or if there are any questions or concerns that arise at home. Administered Medications: 18:35 Drug: Rocephin (cefTRIAXone) 250 mg Route: IM; Site: right gluteus; bp 18:56 Follow up: Response: No adverse reaction bp 18:35 Drug: Zithromax 1 grams Route: PO; bp 18:56 Follow up: Response: No adverse reaction bp Disposition: 08/13/20 18:21 Discharged to Home. Impression: Unspecified sexually transmitted disease. - Condition is Stable. - Discharge Instructions: Sexually Transmitted Disease, [id number]. - Prescriptions for Doxycycline Hyclate 100 mg Oral Tablet - take 1 tablet by ORAL route every 12 hours; 20 tablet. - Medication Reconciliation Form, Thank You Letter, Antibiotic Education, Prescription Opioid Use form. - Follow up: Emergency Department; When: As needed; Reason: Worsening of condition. Follow up: Private Physician; When: 2 - 3 days; Reason: Recheck today's complaints, Continuance of care, Re-evaluation by your physician. Addendum: 08/19/2020 19:13 Co-signature as Attending Physician, Triston Santana MD. r n Signatures: Katharine Dailey, SPECIMEN COLLECTOR-C SPECIMEN COLLECTOR-Ckb Triston Santana MD MD rn Davies, Jonathon RN RN Phil Harry RN RN bp Corrections: (The following items were deleted from the chart) 08/13 18:35 18:34 Constitutional: Negative for fever, chills, and weight loss, Cardiovascular: kb Negative for chest pain, palpitations, and edema, Respiratory: Negative for shortness of breath, cough, wheezing, and pleuritic chest pain, Abdomen/GI: Negative for abdominal pain, nausea, vomiting, diarrhea, and constipation, MS/Extremity: Negative for injury and deformity, Skin: Negative for injury, rash, and discoloration, Neuro: Negative for headache, weakness, numbness, tingling, and seizure, kb 18:56 18:21 08/13/2020 18:21 Discharged to Home. Impression: Unspecified sexually transmitted bp disease. Condition is Stable. Forms are Medication Reconciliation Form, Thank You Letter, Antibiotic Education, Prescription Opioid Use. Follow up: Emergency Department; When: As needed; Reason: Worsening of condition. Follow up: Private Physician; When: 2 - 3 days; Reason: Recheck today's complaints, Continuance of care, Re-evaluation by your physician. kb
--- NOTE | 2020-08-13 18:21 | ER ---
Nurse's Notes [facility] Name: Quinn Garcia Age: 24 yrs Sex: Male : 1995 Arrival Date: 08/13/2020 Time: 18:00 Bed 18 Private MD: Diagnosis: Unspecified sexually transmitted disease Presentation: 08/13 18:06 Chief complaint: Patient states: "I think I might have a STD.". Coronavirus screen: At [facility] this time, the client does not indicate any symptoms associated with coronavirus-19. Ebola Screen: Patient negative for fever greater than or equal to 101.5 degrees Fahrenheit, and additional compatible Ebola Virus Disease symptoms. Initial Sepsis Screen: Does the patient meet any 2 criteria? No. Patient's initial sepsis screen is negative. Does the patient have a suspected source of infection? No. Patient's initial sepsis screen is negative. Risk Assessment: Do you want to hurt yourself or someone else? Patient reports no desire to harm self or others. Onset of symptoms was August 11, 2020. 18:06 Method Of Arrival: Ambulatory [facility] 18:06 Acuity: EDEN 4 jd3 Triage Assessment: 18:10 General: Appears in no apparent distress. uncomfortable, Behavior is cooperative, bp appropriate for age, anxious. Pain: Complains of pain in pelvis. EENT: No deficits noted. Neuro: No deficits noted. Cardiovascular: No deficits noted. Respiratory: No deficits noted. GI: No signs and/or symptoms were reported involving the gastrointestinal system. : Reports burning with urination, discharge, from penis that is. Derm: No deficits noted. Musculoskeletal: No deficits noted. Historical: - Allergies: 18:07 No Known Allergies; jd3 - Home Meds: 18:07 None [Active]; jd3 - PMHx: 18:07 None; jd3 - PSHx: 18:07 None; jd3 - Immunization history:: Adult Immunizations unknown. - Social history:: Smoking status: Patient denies any tobacco usage or history of. Screenin:10 Abuse screen: Denies threats or abuse. Denies injuries from another. Nutritional bp screening: No deficits noted. Tuberculosis screening: No symptoms or risk factors identified. Fall Risk None identified. Assessment: 18:10 General: SEE TRIAGE NOTE. bp 18:53 Reassessment: PT D/C HOME AMBULATORY, DX WITH R/O STD. bp Vital Signs: 18:07 BP 142 / 79; Pulse 79; Resp 17 S; Temp 98.7(TE); Pulse Ox 100% on R/A; Weight 74.84 kg jd3 (R); Height 5 ft. 5 in. (165.10 cm) (R); Pain 5/10; 18:56 BP 137 / 81; Pulse 81; Resp 17; Temp 98.5; Pulse Ox 100% ; bp 18:07 Body Mass Index 27.46 (74.84 kg, 165.10 cm) jd3 ED Course: 18:00 Patient arrived in ED. ag5 18:01 [facility]C [facility] kb 18:02 Triston Santana MD is Attending Physician. kb 18:07 Triage completed. jd3 18:09 Arm band placed on. jd3 18:10 Patient has correct armband on for positive identification. Bed in low position. Call bp light in reach. Side rails up X2. 18:20 Phil Zamora, RN is Primary Nurse. bp 18:54 No provider procedures requiring assistance completed. Patient did not have IV access bp during this emergency room visit. Administered Medications: 18:35 Drug: Rocephin (cefTRIAXone) 250 mg Route: IM; Site: right gluteus; bp 18:56 Follow up: Response: No adverse reaction bp 18:35 Drug: Zithromax 1 grams Route: PO; bp 18:56 Follow up: Response: No adverse reaction bp Outcome: 18:21 Discharge ordered by MD. kb 18:54 Discharged to home ambulatory. bp 18:54 Condition: stable 18:54 Discharge instructions given to patient, Instructed on discharge instructions, follow up and referral plans. medication usage, safe sex practices, Demonstrated understanding of instructions, follow-up care, medications, Prescriptions given X 1. 18:56 Patient left the ED. bp Signatures: Katharine Dailey FNP-C FNP-Ckb Davies, Jonathon, RN RN jPhil Sam RN RN Beni Sun ag5 Corrections: (The following items were deleted from the chart) 18:09 18:07 Pulse 79bpm; Resp 17bpm; Spontaneous; Pulse Ox 100%; Temp 98.7F Temporal; 74.84 jd3 kg Reported; Height 5 ft. 5 in. Reported; BMI: 27.4; Pain 5/10; jd3
[2020-08-13] MEDS ORDERED: CEFTRIAXONE 250 MG/VIAL ONE (18:54)
[2020-08-13] MEDS ORDERED: AZITHROMYCIN 250 MG TAB ONE (18:54)
[2020-08-13 21:24] VITALS: O2SAT 100
[2020-08-13 21:26] VITALS: BP 137/81; TEMP 98.5
== END 2020-08-13 18:56 | disposition home or self-care (01) ==
LOC: ER 17:58
DX: A64 Unspecified sexually transmitted disease (principal)
CPT/HCPCS: 96372; 99283; J0696

== ENCOUNTER 2021-01-18 12:45 | Emergency (ER) | payer SELFPAY ==
--- NOTE | 2021-01-18 13:10 | EDPHYS ---
Physician Documentation [facility] Name: Quinn Garcia Age: 25 yrs Sex: Male : 1995 Arrival Date: 01/18/2021 Time: 12:48 Bed 18 Private MD: ED Physician Triston Santana HPI: 01/18 13:06 This 25 yrs old Male presents to ER via Unassigned with complaints of STD rn Exposure. 13:06 The patient presents with urinary symptoms, clear penile drainage. Onset: The rn symptoms/episode began/occurred 1 month(s) ago. Modifying factors: The symptoms are alleviated by nothing, the symptoms are aggravated by urinating. Severity of symptoms: At their worst the symptoms were very mild, in the emergency department the symptoms have improved. The patient has experienced similar episodes in the past. The patient has not recently seen a physician. Reports thinks has STD, has had them before, gets better with treatment, no swelling, no skin changes, reports clear penile drainage. . Historical: - Allergies: 13:11 No Known Allergies; bw - Home Meds: 13:11 None [Active]; bw - PMHx: 13:11 None; bw - Immunization history:: Adult Immunizations up to date. - Social history:: Smoking status: unknown. - Family history:: not pertinent. - Hospitalizations: : No recent hospitalization is reported. ROS: 13:06 Constitutional: Negative for fever, chills, and weight loss, Abdomen/GI: Negative for rn abdominal pain, nausea, vomiting, diarrhea, and constipation, : Negative for injury, bleeding, and swelling. Exam: 13:06 Constitutional: This is a well developed, well nourished patient who is awake, alert, rn and in no acute distress. Abdomen/GI: Soft, non-tender Skin: Warm, dry, no rash Vital Signs: 13:08 BP 129 / 76; Pulse 73; Resp 18; Temp 98.1(O); Pulse Ox 98% on R/A; bw MDM: 12:51 Patient medically screened. rn 13:06 Differential diagnosis: UTI, urethritis, STI. Data reviewed: vital signs, nurses notes, rn and as a result, I will discharge patient. Counseling: I had a detailed discussion with the patient and/or guardian regarding: the historical points, exam findings, and any diagnostic results supporting the discharge/admit diagnosis, the need for outpatient follow up, to return to the emergency department if symptoms worsen or persist or if there are any questions or concerns that arise at home. Special discussion: I discussed with the patient/guardian in detail that at this point there is no indication for admission to the hospital. It is understood, however, that if the symptoms persist or worsen the patient needs to return immediately for re-evaluation. Administered Medications: 13:24 Drug: Rocephin (cefTRIAXone) 250 mg Route: IM; Site: right ventrogluteal; 13:24 Drug: Flagyl 2 grams Route: PO; bw Disposition: 01/18/21 13:09 Discharged to Home. Impression: Unspecified sexually transmitted disease. - Condition is Stable. - Discharge Instructions: Sexually Transmitted Disease. - Prescriptions for Doxycycline Monohydrate 100 mg Oral Tablet - take 1 tablet by ORAL route every 12 hours for 10 days; 20 tablet. - Medication Reconciliation Form, Thank You Letter, Antibiotic Education, Prescription Opioid Use form. - Follow up: Private Physician; When: As needed; Reason: Recheck today's complaints, Re-evaluation by your physician. - Problem is new. - Symptoms have improved. Signatures: Triston Santana MD MD rn Baker, IKER Sigala RN Corrections: (The following items were deleted from the chart) 13:49 13:09 01/18/2021 13:09 Discharged to Home. Impression: Unspecified sexually transmitted bw disease. Condition is Stable. Forms are Medication Reconciliation Form, Thank You Letter, Antibiotic Education, Prescription Opioid Use. Follow up: Private Physician; When: As needed; Reason: Recheck today's complaints, Re-evaluation by your physician. Problem is new. Symptoms have improved. rn
[2021-01-18] MEDS ORDERED: metroNIDAZOLE 500 MG TABLET ONE ×2 (13:33→13:37)
[2021-01-18] MEDS ORDERED: LIDOCAINE 1% MPF 5 ML VIAL ONE (13:33)
[2021-01-18] MEDS ORDERED: CEFTRIAXONE 250 MG/VIAL ONE (13:33)
--- NOTE | 2021-01-18 13:50 | ER ---
Nurse's Notes [facility] Name: Quinn Garcia Age: 25 yrs Sex: Male : 1995 Arrival Date: 01/18/2021 Time: 12:48 Bed 18 Private MD: Diagnosis: Unspecified sexually transmitted disease Presentation: 01/18 13:08 Chief complaint: Patient states: possible STD exposure, requesting to be fully tested. Coronavirus screen: At this time, unable to obtain information related to travel outside the [place] At this time, the client does not indicate any symptoms associated with coronavirus-19. Ebola Screen: No symptoms or risks identified at this time. Initial Sepsis Screen: Does the patient meet any 2 criteria? No. Patient's initial sepsis screen is negative. Does the patient have a suspected source of infection? No. Patient's initial sepsis screen is negative. Risk Assessment: Do you want to hurt yourself or someone else? Patient reports no desire to harm self or others. Onset of symptoms was January 17, 2021. 13:08 Method Of Arrival: Ambulatory 13:08 Acuity: EDEN 4 Triage Assessment: 13:11 General: Appears in no apparent distress. Behavior is calm, cooperative, appropriate bw for age. Pain: Denies pain. Historical: - Allergies: 13:11 No Known Allergies; bw - Home Meds: 13:11 None [Active]; bw - PMHx: 13:11 None; bw - Immunization history:: Adult Immunizations up to date. - Social history:: Smoking status: unknown. - Family history:: not pertinent. - Hospitalizations: : No recent hospitalization is reported. Screenin:11 Abuse screen: Denies threats or abuse. Nutritional screening: No deficits noted. bw Tuberculosis screening: No symptoms or risk factors identified. Fall Risk None identified. Assessment: 13:11 Reassessment: see triage assessment. Vital Signs: 13:08 BP 129 / 76; Pulse 73; Resp 18; Temp 98.1(O); Pulse Ox 98% on R/A; bw ED Course: 12:48 Patient arrived in ED. mr 12:50 Zakiya Baker RN is Primary Nurse. bw 12:51 Triston Santana MD is Attending Physician. rn 13:10 Triage completed. bw 13:11 Arm band placed on right wrist. bw 13:11 Patient has correct armband on for positive identification. Call light in reach. Side bw rails up X 1. Pulse ox on. NIBP on. Warm blanket given. 13:11 No provider procedures requiring assistance completed. Patient did not have IV access bw during this emergency room visit. Administered Medications: 13:24 Drug: Rocephin (cefTRIAXone) 250 mg Route: IM; Site: right ventrogluteal; bw 13:24 Drug: Flagyl 2 grams Route: PO; bw Outcome: 13:09 Discharge ordered by . rn 13:49 Discharged to home ambulatory. bw 13:49 Condition: stable 13:49 Discharge instructions given to patient, Prescriptions given X 1. 13:49 Patient left the ED. bw Signatures: Candice Oconnor Roman, MD MD rn Baker, IKER Sigala RN bw Corrections: (The following items were deleted from the chart) 13:49 13:48 28.3 kg; bw bw
[2021-01-18 13:54] VITALS: BP 129/76; TEMP 98.1; O2SAT 98
== END 2021-01-18 13:49 | disposition home or self-care (01) ==
LOC: ER 12:45
DX: A64 Unspecified sexually transmitted disease (principal)
CPT/HCPCS: 96372; 99283; J0696

== ENCOUNTER 2021-02-12 13:19 | Emergency (ER) | payer SELFPAY ==
--- NOTE | 2021-02-12 13:51 | EDPHYS ---
Physician Documentation [facility] Name: Quinn Garcia Age: 25 yrs Sex: Male : 1995 Arrival Date: 02/12/2021 Time: 13:20 Bed 6 Private MD: ED Physician Jonny Vicente HPI: 02/12 13:33 This 25 yrs old Male presents to ER via Ambulatory with complaints of Penile cp Discharge. 13:33 The patient presents with symptoms include purulent penile discharge. Onset: The cp symptoms/episode began/occurred this morning. 13:33 Associated signs and symptoms: Pertinent positives: abdominal pain, Pertinent cp negatives: dysuria, fever, hematuria, nausea, vomiting. 13:33 Patient reports having only oral intercourse with new partner but c/o penile discharge cp since this morning. Patient has been treated for STDs in the past. Historical: - Allergies: 13:30 No Known Allergies; ll1 - PMHx: 13:30 None; ll1 - PSHx: 13:30 None; ll1 - Immunization history:: Flu vaccine is not up to date. - Social history:: Smoking status: Patient denies any tobacco usage or history of. ROS: 13:34 Constitutional: Negative for fever. cp 13:34 Respiratory: Negative for cough, shortness of breath. 13:34 Abdomen/GI: Positive for abdominal pain, of the right lower quadrant, Negative for nausea, vomiting, and diarrhea. 13:34 : Positive for penile discharge, Negative for testicular pain 13:34 All other systems are negative. Exam: 13:37 Constitutional: The patient appears in no acute distress, alert, awake, comfortable, cp non-toxic, well developed, well nourished. 13:37 Head/Face: Normocephalic, atraumatic. cp 13:37 Eyes: Periorbital structures: appear normal, Conjunctiva: normal, Sclera: no appreciated abnormality, Lids and lashes: appear normal, bilaterally. 13:37 Chest/axilla: Inspection: normal. 13:37 Cardiovascular: Rate: normal. 13:37 Respiratory: the patient does not display signs of respiratory distress, Respirations: normal, no use of accessory muscles. 13:37 Abdomen/GI: Inspection: abdomen appears normal, Bowel sounds: active, all quadrants, Palpation: abdomen is soft and non-tender, in all quadrants. 13:37 : Male external genitalia: Circumcision noted. erythema, is absent, swelling: is not appreciated, tenderness, is not appreciated, Sexual behavior: the patient is sexually active, and reports multiple partners. 13:37 Skin: cellulitis, is not appreciated, no rash present. Vital Signs: 13:30 BP 140 / 95; Pulse 64; Resp 16; Temp 98.2; Pulse Ox 96% on R/A; Pain 4/10; ll1 13:33 BP 142 / 91; Pulse 64; Resp 18; Temp 98.2(O); Pulse Ox 100% on R/A; Pain 0/10; ld1 MDM: 13:23 Patient medically screened. cp 13:45 Differential diagnosis: UTI, prostatitis, urethritis, STD. cp 13:50 Data reviewed: vital signs, nurses notes, and as a result, I will discharge patient. cp 13:50 Counseling: I had a detailed discussion with the patient and/or guardian regarding: the cp historical points, exam findings, and any diagnostic results supporting the discharge/admit diagnosis, to return to the emergency department if symptoms worsen or persist or if there are any questions or concerns that arise at home. Response to treatment: the patient's symptoms have mildly improved after treatment, and as a result, I will discharge patient. 02/12 13:48 Order name: GC (GONORR/CHLAMYDIA) Probe 02/12 13:49 Order name: Urine Microscopic Only 02/12 13:49 Order name: Urine Dipstick-Ancillary (obtain specimen); Complete Time: 14:09 02/12 14:00 Order name: Urine Dipstick-Ancillary EDMS Administered Medications: 14:19 Drug: Rocephin (cefTRIAXone) 250 mg Route: IM; Site: right gluteus; jd3 14:19 Drug: Zithromax (azithromycin) 1 grams Route: PO; jd3 Disposition: 14:00 Chart complete. 02/13 07:25 Co-signature as Attending Physician, Jonny Vicente MD I agree with the assessment and corinne plan of care. Disposition: 02/12/21 13:50 Discharged to Home. Impression: Encounter for screening for infections with a predominantly sexual mode of transmission. - Condition is Stable. - Discharge Instructions: Chlamydia, Male, Gonorrhea, Sexually Transmitted Disease, Health Maintenance, Male. - Prescriptions for Doxycycline Hyclate 100 mg Oral Tablet - take 1 tablet by ORAL route every 12 hours; 20 tablet. - Medication Reconciliation Form, Thank You Letter, Antibiotic Education, Prescription Opioid Use form. - Follow up: Private Physician; When: 2 - 3 days; Reason: Worsening of condition. - Problem is new. - Symptoms have improved. Signatures: Dispatcher [employer] EDJonny Leahy MD MD cha Page, Corey, PA PA cp Davies, Jonathon, RN RN Bree Kim RN RN ll1 Анна Loza RN RN ld1 Corrections: (The following items were deleted from the chart) 02/12 14:37 13:50 02/12/2021 13:50 Discharged to Home. Impression: Encounter for screening for ld1 infections with a predominantly sexual mode of transmission. Condition is Stable. Prescriptions for Doxycycline Hyclate 100 mg Oral Tablet - take 1 tablet by ORAL route every 12 hours; 20 tablet. and Forms are Medication Reconciliation Form, Thank You Letter, Antibiotic Education, Prescription Opioid Use. Follow up: Private Physician; When: 2 - 3 days; Reason: Worsening of condition. Problem is new. Symptoms have improved. cp
--- NOTE | 2021-02-12 13:51 | ER ---
Nurse's Notes [facility] Name: Quinn Garcia Age: 25 yrs Sex: Male : 1995 Arrival Date: 02/12/2021 Time: 13:20 Bed 6 Private MD: Diagnosis: Encounter for screening for infections with a predominantly sexual mode of transmission Presentation: 02/12 13:30 Chief complaint: Patient states: Yellow drainage from penis for 2 days. States he was ll1 here and got treated for a STD about 2 weeks ago. Took a shot and pills, got better, but then returned yesterday. Coronavirus screen: Client denies travel out of the [place] in the last 14 days. At this time, the client does not indicate any symptoms associated with coronavirus-19. Ebola Screen: Patient denies travel to an Ebola-affected area in the 21 days before illness onset. Initial Sepsis Screen: Does the patient meet any 2 criteria? No. Patient's initial sepsis screen is negative. Does the patient have a suspected source of infection? Yes: Other: r/o STD. Risk Assessment: Do you want to hurt yourself or someone else? Patient reports no desire to harm self or others. Onset of symptoms was February 11, 2021. 13:30 Method Of Arrival: Ambulatory ll1 13:30 Acuity: EDEN 4 ll1 Historical: - Allergies: 13:30 No Known Allergies; ll1 - PMHx: 13:30 None; ll1 - PSHx: 13:30 None; ll1 - Immunization history:: Flu vaccine is not up to date. - Social history:: Smoking status: Patient denies any tobacco usage or history of. Screenin:33 Abuse screen: Denies threats or abuse. Denies injuries from another. Nutritional ld1 screening: No deficits noted. Tuberculosis screening: No symptoms or risk factors identified. Fall Risk None identified. Assessment: 13:33 General: Appears in no apparent distress. comfortable, Behavior is calm, cooperative, ld1 appropriate for age. Pain: Denies pain. Neuro: Level of Consciousness is awake, alert, obeys commands, Oriented to person, place, time, situation. Cardiovascular: Capillary refill < 3 seconds Patient's skin is warm and dry. Respiratory: Airway is patent Respiratory effort is even, unlabored, Respiratory pattern is regular, symmetrical. GI: Abdomen is flat, non-distended. : Reports Yellow discharge from penis X 2 days. Denies pain. Pt states he came to the ER two weeks ago and received a shot and antibiotics but symptoms did not fully subside. EENT: No signs and/or symptoms were reported regarding the EENT system. Derm: No signs and/or symptoms reported regarding the dermatologic system. Musculoskeletal: No signs and/or symptoms reported regarding the musculoskeletal system. 14:19 Reassessment: Patient appears in no apparent distress at this time. Patient and/or jd3 family updated on plan of care and expected duration. Pain level reassessed. Patient is alert, oriented x 3, equal unlabored respirations, skin warm/dry/pink. pt awaiting shot time prior to discharge Patient denies pain at this time. Vital Signs: 13:30 BP 140 / 95; Pulse 64; Resp 16; Temp 98.2; Pulse Ox 96% on R/A; Pain 4/10; ll1 13:33 BP 142 / 91; Pulse 64; Resp 18; Temp 98.2(O); Pulse Ox 100% on R/A; Pain 0/10; ld1 ED Course: 13:20 Patient arrived in ED. am2 13:23 Jonny Johnson PA is PHCP. cp 13:23 Jonny Vicente MD is Attending Physician. cp 13:29 Bree Pascual, IKER is Primary Nurse. ll1 13:29 Arm band placed on Patient placed in an exam room, on a stretcher. ll1 13:32 Triage completed. ll1 13:33 Patient has correct armband on for positive identification. Bed in low position. Call ld1 light in reach. Side rails up X 1. Pulse ox on. NIBP on. Door closed. Noise minimized. 13:33 No provider procedures requiring assistance completed. ld1 13:49 GC (GONORR/CHLAMYDIA) Probe Sent. ld1 14:37 Patient did not have IV access during this emergency room visit. ld1 Administered Medications: 14:19 Drug: Rocephin (cefTRIAXone) 250 mg Route: IM; Site: right gluteus; jd3 14:19 Drug: Zithromax (azithromycin) 1 grams Route: PO; jd3 Outcome: 13:50 Discharge ordered by . cp 14:36 Discharged to home ambulatory. ld1 14:36 Condition: stable 14:36 Discharge instructions given to patient, Instructed on discharge instructions, follow up and referral plans. medication usage, Demonstrated understanding of instructions, follow-up care, medications. 14:37 Patient left the ED. ld1 Signatures: Jonny Johnson PA PA cp Moreno, Amanda am2 Perfecto Peraza RN RN jd3 Bree Pascual RN RN ll1 Анна Loza RN RN ld1
[2021-02-12 14:00] LABS: Urine Blood Trace-intact (Negative); Urine Glucose Negative (Negative); Urine Protein Negative (Negative); Urine Specific Gravity >=1.030 (1.005-1.030)
[2021-02-12] MEDS ORDERED: CEFTRIAXONE 250 MG/VIAL ONE (14:31)
[2021-02-12] MEDS ORDERED: AZITHROMYCIN 250 MG TAB ONE (14:31)
[2021-02-12 14:41] VITALS: TEMP 98.2
[2021-02-12 14:43] VITALS: BP 142/91; O2SAT 100
[2021-02-12 15:06] LABS: Urine Bacteria <20 /HPF (NONE SEEN); Urine Mucus 2+ /HPF (NONE SEEN); Urine RBC NONE SEEN /HPF (NONE SEEN)
[2021-02-17 14:14] LABS: C.trachomatis RNA,TMA Not Detected (Not Detected)
== END 2021-02-12 14:37 | disposition home or self-care (01) ==
LOC: ER 13:19
DX: Z11.3 Encounter for screening for infections with a predominantly sexual mode of transmission (principal)
CPT/HCPCS: 81003; 81015; 87490; 87590; 96372; 99283; J0696

== ENCOUNTER 2022-02-03 17:33 | Emergency (ER) | payer SELFPAY ==
[2022-02-03] MEDS ORDERED: IBUPROFEN 200 MG TAB PO ONE (18:20)
[2022-02-03 19:03] LABS: SARS-COV-2 RT PCR NEGATIVE (NEGATIVE)
--- NOTE | 2022-02-03 19:31 | EDPHYS ---
Physician Documentation [facility] Name: Quinn Garcia Age: 26 yrs Sex: Male : 1995 Arrival Date: 02/03/2022 Time: 17:35 Bed 8 Private MD: ED Physician Ben Winter HPI: 02/03 17:51 This 26 yrs old Male presents to ER via Ambulatory with complaints of Flu jmm Symptoms. 17:51 The patient or guardian reports cough. Onset: The symptoms/episode began/occurred jmm gradually, 1 day(s) ago. Modifying factors: The symptoms are alleviated by nothing. the symptoms are aggravated by nothing. Associated signs and symptoms: Pertinent positives: fever, sore throat. The patient has not experienced similar symptoms in the past. Historical: - Allergies: 17:45 No Known Allergies; ll1 - PMHx: 17:45 None; ll1 - PSHx: 17:45 None; ll1 - Immunization history:: Client reports having NOT received the Covid vaccine. Flu vaccine status is unknown. - Social history:: Smoking status: Patient denies any tobacco usage or history of. ROS: 17:51 Constitutional: Positive for fever. jmm 17:51 Respiratory: Positive for cough. 17:51 All other systems are negative. Exam: 17:51 Constitutional: This is a well developed, well nourished patient who is awake, alert, jmm and in no acute distress. Head/Face: atraumatic. Eyes: EOMI, no conjunctival erythema appreciated ENT: Moist Mucus Membranes Neck: Trachea midline, Supple Chest/axilla: Normal chest wall appearance and motion. Cardiovascular: Regular rate and rhythm. No edema appreciated Respiratory: Normal respirations, no respiratory distress appreciated Abdomen/GI: Non distended, soft Back: Normal ROM Skin: General appearance color normal MS/ Extremity: Moves all extremities, no obvious deformities appreciated, no edema noted to the lower extremities Neuro: Awake and alert Psych: Behavior is normal, Mood is normal, Patient is cooperative and pleasant Vital Signs: 17:43 BP 137 / 92; Pulse 108; Resp 17; Temp 99.9; Pulse Ox 100% ; Weight 70.31 kg; Height 5 ll1 ft. 5 in. (165.10 cm); Pain 9/10; 17:57 BP 141 / 88; Pulse 92; Resp 18; Pulse Ox 100% on R/A; vg1 18:21 BP 128 / 77; Pulse 90; Pulse Ox 99% on R/A; ap3 19:26 BP 119 / 87; Pulse 76 MON; Resp 18 S; Pulse Ox 96% on R/A; as6 17:43 Body Mass Index 25.79 (70.31 kg, 165.10 cm) ll1 MDM: 17:51 Patient medically screened. [facility] 19:30 Data reviewed: vital signs, nurses notes. Counseling: I had a detailed discussion with cecil the patient and/or guardian regarding: the historical points, exam findings, and any diagnostic results supporting the discharge/admit diagnosis, lab results, the need for outpatient follow up, to return to the emergency department if symptoms worsen or persist or if there are any questions or concerns that arise at home. ED course: Patient is alert and non toxic in appearance in the ED. No signs of resp distress. Patient advised to follow up with pcp and otherwise given strict return precautions. Patient understood and agrees with the plan of care. . 02/03 17:51 Order name: COVID-19/FLU A+B (Document "Date of Onset" if Symptomatic); Complete Time: ap3 19:28 02/03 17:51 Order name: Strep; Complete Time: 18:20 ap3 02/03 18:21 Order name: Throat Culture EDMS Administered Medications: 18:19 Drug: Ibuprofen 600 mg Route: PO; ap3 19:49 Follow up: Response: No adverse reaction as6 Disposition: 20:29 Co-signature as Attending Physician, Ben Winter MD I agree with the assessment and kdr plan of care. Disposition Summary: 02/03/22 19:31 Discharge Ordered Location: Home [facility] Condition: Stable [facility] Diagnosis - Influenza A [facility] Followup: [facility] - With: Private Physician - When: 2 - 3 days - Reason: Recheck today's complaints, Continuance of care, Re-evaluation by your physician Discharge Instructions: - Discharge Summary Sheet [facility] - Influenza, Adult [facility] Forms: - Medication Reconciliation Form [facility] - Thank You Letter [facility] - Antibiotic Education [facility] - Prescription Opioid Use [facility] Prescriptions: - Tamiflu 75 mg Oral Capsule - take 1 tablet by ORAL route every 12 hours for 5 days; 10 tablet; Refills: 0, jmm Product Selection Permitted - promethazine-DM - take 5 milliliter by ORAL route every 4-6 hours; 120 milliliter; Refills: 0, jmm Product Selection Permitted Signatures: Dispatcher [employer] Ben Jenkins MD MD kdr Mickail, Joel, PA PA jmm Prokisch, Amanda, RN RN ap3 Bree Pascual RN RN ll1 Alfonso Veliz RN as6
--- NOTE | 2022-02-03 19:31 | ER ---
Nurse's Notes [facility] Name: Quinn Garcia Age: 26 yrs Sex: Male : 1995 Arrival Date: 02/03/2022 Time: 17:35 Bed 8 Private MD: Diagnosis: Influenza A Presentation: 02/03 17:43 Chief complaint: Patient states: Back pain, body aches, EGAN, runny nose, cough, and ll1 fever since yesterday. Coronavirus screen: Vaccine status: Patient reports being unvaccinated. Client denies travel out of the [place] in the last 14 days. congestion, cough unrelated to allergies, fatigue, fever, headache, muscle pain, Client presents with at least one sign or symptom that may indicate coronavirus-19. Standard/surgical mask placed on the client. Ebola Screen: Patient denies travel to an Ebola-affected area in the 21 days before illness onset. Initial Sepsis Screen: Does the patient meet any 2 criteria? No. Patient's initial sepsis screen is negative. Does the patient have a suspected source of infection? No. Patient's initial sepsis screen is negative. Risk Assessment: Do you want to hurt yourself or someone else? Patient reports no desire to harm self or others. Onset of symptoms was February 02, 2022. 17:43 Method Of Arrival: Ambulatory ll1 17:43 Acuity: EDEN 4 ll1 Triage Assessment: 17:45 General: Appears ill, Behavior is cooperative, appropriate for age. Pain: Complains of ll1 pain in back Quality of pain is described as aching. EENT: Reports nasal congestion. Respiratory: Reports cough that is. Musculoskeletal: Reports pain in back. Historical: - Allergies: 17:45 No Known Allergies; ll1 - PMHx: 17:45 None; ll1 - PSHx: 17:45 None; ll1 - Immunization history:: Client reports having NOT received the Covid vaccine. Flu vaccine status is unknown. - Social history:: Smoking status: Patient denies any tobacco usage or history of. Screenin:20 Abuse screen: Denies threats or abuse. Nutritional screening: No deficits noted. ap3 Tuberculosis screening: No symptoms or risk factors identified. Fall Risk None identified. Assessment: 18:19 General: Appears in no apparent distress. Behavior is calm, cooperative, appropriate ap3 for age, Reports chills for fever for feeling ill for fatigue for. Pain: Complains of pain in back Quality of pain is described as aching, crampy, dull, Pain began gradually, 2-3 days ago. Neuro: Level of Consciousness is awake, alert, obeys commands, Oriented to person, place, time, situation, Appropriate for age. Cardiovascular: Patient's skin is warm and dry. Respiratory: Airway is patent Respiratory effort is even, unlabored, Respiratory pattern is regular, symmetrical. 19:28 Reassessment: Patient appears in no apparent distress at this time. as6 Vital Signs: 17:43 BP 137 / 92; Pulse 108; Resp 17; Temp 99.9; Pulse Ox 100% ; Weight 70.31 kg; Height 5 ll1 ft. 5 in. (165.10 cm); Pain 9/10; 17:57 BP 141 / 88; Pulse 92; Resp 18; Pulse Ox 100% on R/A; vg1 18:21 BP 128 / 77; Pulse 90; Pulse Ox 99% on R/A; ap3 19:26 BP 119 / 87; Pulse 76 MON; Resp 18 S; Pulse Ox 96% on R/A; as6 17:43 Body Mass Index 25.79 (70.31 kg, 165.10 cm) ll1 ED Course: 17:35 Patient arrived in ED. mr 17:36 Jas Moran PA is PHCP. [facility] 17:36 Ben Winter MD is Attending Physician. [facility] 17:44 Triage completed. ll1 17:45 Arm band placed on Patient placed in an exam room, on a stretcher. ll1 17:58 Strep Sent. vg1 17:58 COVID-19/FLU A+B (Document "Date of Onset" if Symptomatic) Sent. vg1 18:14 Nancy Bravo, IKER is Primary Nurse. ap3 18:20 Patient has correct armband on for positive identification. Bed in low position. Call ap3 light in reach. Side rails up X2. Adult w/ patient. Pulse ox on. NIBP on. Door closed. Noise minimized. 19:49 No provider procedures requiring assistance completed. Patient did not have IV access as6 during this emergency room visit. Administered Medications: 18:19 Drug: Ibuprofen 600 mg Route: PO; ap3 19:49 Follow up: Response: No adverse reaction as6 Outcome: 19:31 Discharge ordered by . cecil 19:49 Discharged to home ambulatory, with significant other. as6 19:49 Condition: stable 19:49 Discharge instructions given to patient, Instructed on discharge instructions, follow up and referral plans. medication usage, Demonstrated understanding of instructions, follow-up care, medications, Prescriptions given X 2. 19:49 Patient left the ED. as6 Signatures: Jas Moran PA PA jayson Candice Oconnor mr Nancy Bravo, RN RN ap3 Reshma Acosta RN RN vg1 Bree Pascual RN RN ll1 Alfonso Veilz RN RN as6
[2022-02-03 19:54] VITALS: TEMP 99.9
[2022-02-03 19:57] VITALS: BP 119/87; O2SAT 96
== END 2022-02-03 19:49 | disposition home or self-care (01) ==
LOC: ER 17:33
DX: J11.1 Influenza due to unidentified influenza virus with other respiratory manifestations (principal); Z20.822 Contact with and (suspected) exposure to COVID-19
CPT/HCPCS: 0240U; 87070; 87081

== ENCOUNTER 2025-01-14 18:43 | Emergency (ER) | payer SELFPAY ==
[2025-01-14 19:51] LABS: Specific Gravity > 1.030 (1.005-1.030); Sqamous Epithelial None Seen /HPF (None Seen); Urine Bacteria None Seen /HPF (<20); Urine Bilirubin NEGATIVE (Negative); Urine Blood Negative (Negative); Urine Clarity Clear (Clear); Urine Color Yellow (Yellow); Urine Culture Reflex Order NOT NEEDED; Urine Glucose NEGATIVE (Negative); Urine Ketones 1+ (Negative); Urine Microscopic Reflex YN ORDER UMIC; Urine Mucus 2+ /HPF (None Seen); Urine Nitrite NEGATIVE (Negative); Urine Protein TRACE (Negative); Urine RBC <5 /HPF (None Seen); Urine Urobilinogen Normal (Normal); Urine WBC <5 /HPF (<5); Urine Yeast (Budding) Trace /HPF (None Seen)
[2025-01-14 19:54] LABS: Absolute Basophils 0.1 K/uL (0-0.5); Absolute Lymphocytes (CBC) 1.7 K/uL (0.7-4.9); Absolute Monocytes 0.4 K/uL (0.1-1.3); Absolute Neutrophil 9.4 K/uL (1.8-8.0); Basophils % 0.6 % (0-1.3); Eosinophils % 0.1 % (0-4.4); Hemoglobin 15.7 g/dL (13.6-17.9); MCH 30.3 pg (27.0-35.0); MCHC 33.4 g/dL (32.0-36.0); MCV 90.7 fL (80-100); Monocytes % 3.6 % (3.3-12.3); Neutrophils % 80.7 % (41.7-73.7); Platelets 334 thou/uL (152-406); RBC Red Blood Cell Count 5.18 M/uL (4.33-5.43); Red Cell Distribution Width 14.2 % (12.1-15.2)
--- NOTE | 2025-01-14 19:58 | RAD REPORT ---
EXAM: XR RIGHT HAND HISTORY: Pain. PAIN COMPARISON: None TECHNIQUE: Multiple projections of the right hand submitted. FINDINGS: There is mild subluxation noted at the first MCP joint. This may be chronic, suggest clinic al correlation. No acute fracture or dislocation.
[2025-01-14 20:00] LABS: Albumin 4.4 g/dL (3.4-5.0); Albumin/Globulin Ratio 1.1 (1.1-1.8); Anion Gap 7.3 mEq/L (5.0-15.0); Bilirubin Total 0.4 mg/dL (0.2-1.0); Globulin 3.9 g/dL (2.3-3.5); Potassium 3.3 mEq/L (3.5-5.1); Protein, Total 8.3 g/dL (6.4-8.2)
[2025-01-14] MEDS ORDERED: POTASSIUM CL SA 10 MEQ TAB PO ONE (20:13)
--- NOTE | 2025-01-14 20:18 | ER ---
Nurse's Notes [facility] Name: Quinn Garcia Age: 29 yrs Sex: Male : 1995 Arrival Date: 01/14/2025 Time: 18:43 Bed 13 Private MD: Diagnosis: Lower abdominal pain, unspecified;Epidermal cyst Presentation: 01/14 18:59 Chief complaint: Patient states: he has been having pain in the joints of his right ap3 hand since Tuesday, of which he rates an 8/10 on the pain scale. patient also states he had "really bad abdominal pain about a month ago, and now when i push on it, it is sore.". Coronavirus screen: At this time, the client does not indicate any symptoms associated with coronavirus-19. Ebola Screen: No symptoms or risks identified at this time. Initial Sepsis Screen: Does the patient meet any 2 criteria? No. Patient's initial sepsis screen is negative. Does the patient have a suspected source of infection? No. Patient's initial sepsis screen is negative. Risk Assessment: Do you want to hurt yourself or someone else? Patient reports no desire to harm self or others. Onset of symptoms is unknown. 18:59 Method Of Arrival: Ambulatory ap3 18:59 Acuity: EDEN 3 ap3 Triage Assessment: 19:01 General: Appears in no apparent distress. Behavior is calm, cooperative, appropriate ap3 for age. Pain: Complains of pain in abdomen and right hand. Pain: Pain currently is 8 out of 10 on a pain scale. Neuro: Level of Consciousness is awake, alert, obeys commands, Oriented to person, place, time, situation, Appropriate for age. Cardiovascular: Patient's skin is warm and dry. Respiratory: Airway is patent Respiratory effort is even, unlabored, Respiratory pattern is regular, symmetrical. GI: Reports lower abdominal pain, upper abdominal pain. Historical: - Allergies: 19:01 No Known Allergies; ap3 - Home Meds: 19: None [Active]; ap3 - PMHx: 19:01 None; ap3 - Immunization history:: Client reports having NOT received the Covid vaccine. - Infectious Disease History:: Denies. - Social history:: Smoking status: Patient denies any tobacco usage or history of. Screenin:01 [facility] ED Fall Risk Assessment (Adult) History of falling in the last 3 months, ap3 including since admission No falls in past 3 months (0 pts) Confusion or Disorientation No (0 pts) Intoxicated or Sedated No (0 pts) Impaired Gait No (0 pts) Mobility Assist Device Used No (0 pt) Altered Elimination No (0 pt) Score/Fall Risk Level 0 - 2 = Low Risk Oriented to surroundings, Maintained a safe environment, Educated pt \\T\\ family on fall prevention, incl call for assistance when getting out of bed, Assessed \\T\\ reinforced patient's understanding of fall precautions, Hourly rounding (assess needs \\T\\ fall precautionary measures) done, Used ambulatory aids as needed (educated on \\T\\ assisted with). Abuse screen: Denies threats or abuse. Nutritional screening: No deficits noted. Tuberculosis screening: No symptoms or risk factors identified. Assessment: 19:13 General: Appears in no apparent distress. comfortable, Behavior is calm, cooperative, rg5 appropriate for age. Pain: Complains of pain in abdomen Quality of pain is described as aching. Neuro: Level of Consciousness is awake, alert, obeys commands, Oriented to person, place, time. Cardiovascular: Denies chest pain, Patient's skin is warm and dry. Respiratory: Airway is patent Trachea midline Respiratory effort is even, unlabored, Respiratory pattern is. GI: Abdomen is flat, non-distended, Bruits noted in left upper quadrant Abd is soft and non tender. : No signs and/or symptoms were reported regarding the genitourinary system. EENT: No deficits noted. Derm: Skin is intact, Skin is dry, Skin is normal. Musculoskeletal: Circulation, motion, and sensation intact. Range of motion: intact in all extremities. 20:15 Reassessment: No changes from previously documented assessment. Patient and/or family rg5 updated on plan of care and expected duration. Pain level reassessed. Patient is alert, oriented x 3, equal unlabored respirations, skin warm/dry/pink. Vital Signs: 18:59 BP 145 / 100; Pulse 90; Resp 17; Temp 97.7; Pulse Ox 98% ; Weight 79.83 kg; Height 5 ap3 ft. 4 in. ; Pain 8/10; 19:12 BP 149 / 99; Pulse 97; Resp 18; Pulse Ox 98% on R/A; Pain 5/10; rg5 20:15 BP 131 / 78; Pulse 88; Resp 18; Pulse Ox 100% ; Pain 0/10; rg5 18:59 Body Mass Index 30.21 (79.83 kg, 162.56 cm) ap3 18:59 Pain Scale: Adult ap3 19:12 Pain Scale: Adult rg5 20:15 Pain Scale: Adult rg5 ED Course: 18:48 Patient arrived in ED. im 18:56 Kath[facility] Dailey [facility]-C [facility] kb 18:56 Dorcas Dean MD is Attending Physician. kb 19:01 Triage completed. ap3 19:02 Eladio Reyes, RN is Primary Nurse. rg5 19:02 Arm band placed on left wrist. ap3 19:13 Patient has correct armband on for positive identification. Door closed. Noise rg5 minimized. 19:13 No provider procedures requiring assistance completed. rg5 19:52 Hand Right 3 View XRAY In Process Unspecified. EDMS 20:15 Provided Education on: post er care. rg5 20:15 IV discontinued, bleeding controlled, No redness/swelling at site. Pressure dressing rg5 applied. Administered Medications: 20:24 Drug: Potassium Chloride PO 20 mEq PO once Route: PO; br2 20:38 Follow up: Response: No adverse reaction rg5 Medication: 19:13 VIS not applicable for this client. rg5 Outcome: 20:18 Discharge ordered by . kb 20:37 Discharged to home ambulatory, rg5 20:37 Condition: stable rg5 20:37 Discharge instructions given to patient, Instructed on discharge instructions, Demonstrated understanding of instructions, 20:38 Patient left the ED. rg5 Signatures: Dispatcher [employer] EDIL Katharine Dailey FNP-C FNP-Ckb Prokisch, Amanda RN RN ap3 Julissa Nelson Eladio Reyes, RN RN rg5 Darlene Anguiano RN RN br2
--- NOTE | 2025-01-14 20:18 | EDPHYS ---
Physician Documentation [facility] Name: Quinn Garcia Age: 29 yrs Sex: Male : 1995 Arrival Date: 01/14/2025 Time: 18:43 Bed 13 Private MD: ED Physician Dorcas Dean HPI: 01/14 19:39 This 29 yrs old Male presents to ER via Ambulatory with complaints of Right kb Hand Pain, Abdominal Pain. 19:39 Pt is a 29 year old male who presents for pain to right thumb with swelling that kb started 10 days ago. Denies injury or trauma. Also reports soreness to lower abdomen that has been ongoing for over 2 weeks. States he was laying in bed one night, got severe pain to lower abd and has had a soreness since then. Denies fever, n/v/d. . Historical: - Allergies: 19:01 No Known Allergies; ap3 - Home Meds: 19:01 None [Active]; ap3 - PMHx: 19:01 None; ap3 - Immunization history:: Client reports having NOT received the Covid vaccine. - Infectious Disease History:: Denies. - Social history:: Smoking status: Patient denies any tobacco usage or history of. ROS: 19:38 Constitutional: As per HPI kb Exam: 19:38 Constitutional: This is a well developed, well nourished patient who is awake, alert, kb and in no acute distress. Head/Face: Normocephalic, atraumatic. ENT: Moist Mucous membranes Cardiovascular: Regular rate Respiratory: Respirations even and unlabored. No increased work of breathing. Talking in full sentences Abdomen/GI: Soft, non-tender. No distention Skin: Warm, dry with normal turgor. Normal color. Neuro: Awake and alert, GCS 15, oriented to person, place, time, and situation. 19:38 Musculoskeletal/extremity: Extremities: grossly normal except: noted in the dorsal aspect of proximal phalanx of right thumb: pain, swelling, tenderness, cyst noted, ROM: intact in all extremities, Circulation is intact in all extremities. Sensation intact. Vital Signs: 18:59 BP 145 / 100; Pulse 90; Resp 17; Temp 97.7; Pulse Ox 98% ; Weight 79.83 kg; Height 5 ap3 ft. 4 in. ; Pain 8/10; 19:12 BP 149 / 99; Pulse 97; Resp 18; Pulse Ox 98% on R/A; Pain 5/10; rg5 20:15 BP 131 / 78; Pulse 88; Resp 18; Pulse Ox 100% ; Pain 0/10; rg5 18:59 Body Mass Index 30.21 (79.83 kg, 162.56 cm) ap3 18:59 Pain Scale: Adult ap3 19:12 Pain Scale: Adult rg5 20:15 Pain Scale: Adult rg5 MDM: 18:56 Medical Screening Exam initiated kb 19:39 Data reviewed: vital signs, nurses notes. kb 20:17 Differential diagnosis: abnormal electrolytes, uti, kidney stone, cyst, dislocation, kb cellulitis. Test considered but Not performed: CT: ct abd considered but pt has no abd tenderness. Counseling: I had a detailed discussion with the patient and/or guardian regarding the historical points, exam findings, and any diagnostic results supporting the discharge/admit diagnosis, lab results, radiology results, the need for outpatient follow up, a family practitioner, to return to the emergency department if symptoms worsen or persist or if there are any questions or concerns that arise at home. 01/14 19:06 Order name: CBC with Diff; Complete Time: 19:59 kb 01/14 19:06 Order name: CMP; Complete Time: 20:01 kb 01/14 19:06 Order name: Lipase; Complete Time: 20:01 kb 01/14 19:06 Order name: Urinalysis w/ reflexes; Complete Time: 19:59 kb 01/14 19:06 Order name: Hand Right 3 View XRAY; Complete Time: 19:59 kb 01/14 19:06 Order name: IV Saline Lock; Complete Time: 19:38 kb 01/14 19:06 Order name: Labs collected and sent; Complete Time: 19:38 kb Administered Medications: 20:24 Drug: Potassium Chloride PO 20 mEq PO once Route: PO; br2 20:38 Follow up: Response: No adverse reaction rg5 Disposition Summary: 01/14/25 20:18 Discharge Ordered Notes: Location: Home kb Condition: Stable kb Diagnosis - Lower abdominal pain, unspecified kb - Epidermal cyst kb Followup: kb - With: Emergency Department - When: As needed - Reason: Worsening of condition Followup: kb - With: Private Physician - When: 2 - 3 days - Reason: Recheck today's complaints, Continuance of care, Re-evaluation by your physician Discharge Instructions: - Discharge Summary Sheet kb - Epidermoid Cyst, [id number] kb - Abdominal Pain, Adult, [id number] kb Forms: - Medication Reconciliation Form kb - Antibiotic Education kb - Prescription Opioid Use kb - Patient Portal Instructions kb - Leadership Thank You Letter kb Signatures: Dispatcher [employer] Katharine Barnard, CAREER SERVICES REPRESENTATIVE-C LAWRENCE-Nancy Lima RN RN ap3 Darlene Anguiano RN RN br2 Eladio Reyes RN rg5
[2025-01-14 20:45] VITALS: TEMP 97.7
[2025-01-14 20:47] VITALS: BP 131/78; O2SAT 100
== END 2025-01-14 20:38 | disposition home or self-care (01) ==
LOC: ER 18:43
DX: L72.0 Epidermal cyst (principal)
CPT/HCPCS: 36415; 80053; 81001; 83690; 85025; 99283